=== PATIENT | female | born 2000 | race Caucasian/White ===

== ENCOUNTER 2021-06-11 11:57 | Outpatient (CLI) | payer OTHER, SELFPAY ==
[2021-06-11 12:19] LABS: Hematocrit 40.7 % (37.0-47.0); Hemoglobin 12.8 g/dL (12.0-15.0); Mean Corpuscular HGB Conc 31.4 g/dl (32-36); Mean Corpuscular Hemoglobin 26.6 pg (26-34); Mean Corpuscular Volume 84.6 fl (80-100); Mean Platelet Volume 9.2 fl (7.4-10.4); Platelet Count Result 330 k/mm3 (150-375); Red Blood Count 4.81 M/mm3 (4.2-5.4); Red Cell Distribution Width 13.7 % (11.5-14.5); White Blood Count 7.7 K/mm3 (4.5-10.0)
[2021-06-11 12:28] LABS: Alanine Aminotransferase 14 U/L (4-35); Albumin Level 4.4 g/dL (3.5-5.1); Alkaline Phosphatase 43 U/L (38-126); Anion Gap 6 mmol/L (8-16); Aspartate Amino Transferase 23 U/L (14-36); Bilirubin,Total 0.3 mg/dL (0.2-1.3); Blood Urea Nitrogen 10 mg/dL (7-17); Calcium 9.6 mg/dL (8.4-10.2); Carbon Dioxide 28 mmol/L (22-30); Chloride 104 mmol/L (98-107); Estimated Glomerular Filt Rate > 60; Glucose 85 mg/dL (65-105); Lipase 95 U/L (23-300); Potassium 4.4 mmol/L (3.4-5.0); Sodium 138 mmol/L (137-145)
--- NOTE | 2021-06-11 13:44 | ECG_ITS ---
Measurements Intervals [place] Rate: 59 P: 33 [place]: 152 QRS: 23 QRSD: 90 T: 21 QT: 431 QTc: 430 Interpretive Statements SINUS BRADYCARDIA WITH SINUS ARRHYTHMIA INCOMPLETE RIGHT BUNDLE BRANCH BLOCK BORDERLINE T WAVE ABNORMALITY- ANTERIOR LEADS BORDERLINE ECG Electronically Signed On 06-11-2021 14:22:43 CDT by Gasper Herrera D.O.
== END 2021-06-11 11:58 | disposition home or self-care (01) ==
LOC: ANHLAB 12:01
PROVIDERS: PCP Family Medicine; Visit Provider Physician Assistant
DX: R07.9 Chest pain, unspecified (principal); R10.9 Unspecified abdominal pain; I45.10 Unspecified right bundle-branch block
CPT/HCPCS: 36415; 80053; 83690; 85027; 93005

== ENCOUNTER 2021-08-24 12:19 | Emergency (ER) | payer OTHER, SELFPAY ==
--- NOTE | ~2021-08-24 | XR_ITS ---
EXAMINATION: XR chest 2V EXAM DATE: 08/24/2021 12:52 INDICATION: Posterior low right side chest pain after soccer injury. TECHNIQUE: Frontal and lateral projections of the chest obtained and reviewed. There is no prior lynn dy for comparison. FINDINGS: The lungs are clear. There are no pleural effusions. The cardiomediastinal silhouette is within normal limits. There is no pneumothorax suspected. No displaced rib fracture identified. IMPRESSION: No acute cardiopulmonary findings. Reviewed, dictated and finalized at location A.
[2021-08-24 12:33] VITALS: BP 125/70; PULSE 58; RESP 16; TEMP 36.8; O2SAT 100
--- NOTE | 2021-08-24 13:31 | ED.BACK ---
HPI - Back Pain/Injury General Chief Complaint: Back Pain/Injury Stated Complaint: Rt side pain Source: patient and RN notes reviewed Limitations: no limitations History of Present Illness HPI Narrative: The patient, previously healthy college rehabilitation services aide, presents with right rib pain. Patient states she has a weeklong history of right rib area pain where she received a sports injury/was struck there then. She felt was merely a bruise until the most recent game yesterday where she was twisting and felt some cracking of the right posterior lower ribs. No fever, cough, frequency/hematuria/urgency/dysuria, shortness of breath; she has been Covid vaccinated Related Data Home Medications Medication Instructions Recorded Confirmed norethindrone 1 mg-ethinyl 1 tablet PO DAILY 05/14/21 08/24/21 estradiol 20 mcg (24)-iron 75 mg (4) tablet Allergies Allergy/AdvReac Type Severity Reaction Status Date / Time amoxicillin Allergy Mild Hives Verified 08/24/21 12:47 Penicillins Allergy Mild Hives Verified 08/24/21 12:47 ENVIRONMENTAL ALLERGENS Allergy Mild Watery Eye Uncoded 08/24/21 12:47 Review of Systems Review of Systems: General/Constitutional: No weight loss,fever Eyes: N0: Redness,discharge Ears/Nose/Throat: No: Epistaxis,ear discharge Respiratory: Denies: Hemoptysis Gastrointestinal: No Vomiting, Bleeding-rectal Skin: No Lumps, eruption Neurologic: No Focal Weakness,Sz Hematologic: Denies: Petechiae/Purpura Psychiatric: No: Suicida ideationl All Other Systems: Reviewed and Negative [facility] Past Medical History Medical History (Updated 08/24/21 @ 13:34 by [place] Quinteros MD) Herniation of intervertebral disc between L5 and S1 Surgical History Surgical History History of tonsillectomy Hx of tympanostomy tubes Family History Family History Mother Sjogrens syndrome Grandparent Cervical cancer Grandparent Heart disease Grandparent Hypertension Social History Social History Smoking status: Never smoker Alcohol intake: current Drinks per week: 1 Substance use: never Substance use type: does not use Comments At time of signature, agree with nursing past medical, surgical, social and family history. There is no relevant family history pertinent to the presenting complaint Exam Narrative: General Appearance: Well appearing, No distress EYE: PERRLA, Conjunctiva clear Ears: External ear normal Nose: Normal nose Mouth/Throat: Normal appearing, Normal lips Neck: Supple Respiratory: Airway patent, No respiratory distress, CTA, tender right ribs T10-12 posterior axillary line Cardiovascular: RRR Abdomen: Soft, Non-tender, No massess, no CVAT, right upper quadrant tenderness Musculoskeletal: Full ROM Skin: Warm, Dry Neurological: A&O x3, CN II-X intact Psychiatric: Normal mood, Normal affect Course Vital Signs Vital signs: Vital Signs Temperature 98.3 F 08/24/21 12:33 Pulse Rate 58 L 08/24/21 12:33 Respiratory Rate 16 08/24/21 12:33 Blood Pressure 125/70 08/24/21 12:33 Pulse Oximetry 100 08/24/21 12:33 Temperature 98.3 F 08/24/21 12:33 Pulse Rate 58 L 08/24/21 12:33 Respiratory Rate 16 08/24/21 12:33 Blood Pressure 125/70 08/24/21 12:33 Pulse Oximetry 100 08/24/21 12:33 Discharge Plan Discharge Clinical Impression: Rib injury Patient Disposition: Home, Self-Care Condition: Stable Instructions: Rib Contusion (ED) Prescriptions: New tramadol 50 mg tablet 50 - 75 mg PO Q6H PRN (Reason: pain) Qty: 30 RF: 0 No Action norethindrone-e.estradiol-iron [] 1 mg-20 mcg (24)/75 mg (4) tablet 1 tablet PO DAILY RF: 0 Follow-up/Referrals: Emily Juarez MD [Primary Care Provider] -
== END 2021-08-24 13:35 | disposition home or self-care (01) ==
PROVIDERS: Emergency Provider Emergency Medicine; PCP Family Medicine
DX: S29.9XXA Unspecified injury of thorax, initial encounter (principal); W21.9XXA Striking against or struck by unspecified sports equipment, initial encounter
CPT/HCPCS: 71046; 99213; G0463

== ENCOUNTER 2022-03-21 10:35 | Outpatient (CLI) | payer OTHER, SELFPAY ==
--- NOTE | ~2022-03-21 | XR_ITS ---
EXAMINATION: XR pelvis min 3V DATE: 03/21/2022 11:05 INDICATION: Right hip pain. TECHNIQUE: 3 views of the pelvis were obtained. COMPARISON: None. FINDINGS: There is old healed fracture of right acetabulum with fixation of right ilium with 4 screws . No acute fracture. There is mild right hip osteoarthritis. IMPRESSION: 1. Old healed fracture of right acetabulum with interval fixation. 2. Mild right hip osteoarthritis. Reviewed, dictated and finalized at location B.
== END 2022-03-21 10:36 | disposition home or self-care (01) ==
PROVIDERS: PCP Family Medicine; Visit Provider Orthopaedic Surgery
DX: M16.11 Unilateral primary osteoarthritis, right hip (principal); Z47.89 Encounter for other orthopedic aftercare
CPT/HCPCS: 72190

== ENCOUNTER 2024-06-29 16:30 | Outpatient (CLI) | payer OTHER, SELFPAY ==
--- NOTE | 2024-06-29 16:40 | ECG_ITS ---
Test Date: 2024-06-29 16:51:50 Measurements Intervals [place] Rate: 85 P: 51 [place]: 162 QRS: 18 QRSD: 90 T: 36 QT: 354 QTc: 423 Interpretive Statements SINUS RHYTHM WITH SINUS ARRHYTHMIA INCOMPLETE RIGHT BUNDLE BRANCH BLOCK BORDERLINE ECG No previous ECG available for comparison Electronically Signed On 06-29-2024 20:27:46 CDT by Gasper Herrera D.O.
[2024-06-29 17:10] LABS: Hematocrit 39.5 % (37.0-47.0); Hemoglobin 12.8 g/dL (12.0-15.0); Mean Corpuscular HGB Conc 32.4 g/dl (32-36); Mean Corpuscular Hemoglobin 27.8 pg (26-34); Mean Corpuscular Volume 85.7 fl (80-100); Mean Platelet Volume 8.9 fl (7.4-10.4); Platelet Count Result 250 k/mm3 (150-375); Red Blood Count 4.61 M/mm3 (4.2-5.4); White Blood Count 7.6 K/mm3 (4.5-10.0)
[2024-06-29 17:22] LABS: Alanine Aminotransferase 14 U/L (6-35); Albumin Level 4.5 g/dL (3.5-5.1); Alkaline Phosphatase 39 U/L (38-126); Anion Gap 10 mmol/L (4-12); Aspartate Amino Transferase 23 U/L (14-36); Bilirubin,Total 0.2 mg/dL (0.2-1.3); Blood Urea Nitrogen 8 mg/dL (7-17); Calcium 9.1 mg/dL (8.4-10.2); Carbon Dioxide 28 mmol/L (22-30); Chloride 99 mmol/L (98-107); Estimated Glomerular Filt Rate > 60; Glucose 88 mg/dL (65-110); Sodium 137 mmol/L (137-145)
[2024-06-29 17:52] LABS: Thyroid Stimulating Hormone 0.815 uIU/mL (0.465-4.680)
[2024-06-29 18:08] LABS: Band Neutrophils Percent 1 % (0-6); Basophils Absolute Manual 0.07 K/mm3 (0.0-0.1); Basophils Percent Manual 1 % (0-1); Eosinophils Absolute Manual 0.22 K/mm3 (0.02-0.50); Eosinophils Percent Manual 3 % (0-4); Lymphocytes Absolute Manual 2.66 K/mm3 (1.1-4.5); Monocytes Absolute Manual 1.06 K/mm3 (0.1-0.90); Monocytes Percent Manual 14 % (3-9); Neutrophils Absolute Manual 3.57 K/mm3 (1.7-7.2); Neutrophils Percent Manual 46 % (46-73); Platelet Estimate Adequate (Adequate); Schistocytes None Seen; Total Cells Counted 100
[2024-06-29 18:15] LABS: Free T4 Free Thyroxine 1.07 ng/mL (0.78-2.19)
[2024-07-01 08:54] LABS: Anti Nuclear Antibody Pattern Nuclear, Speckled
== END 2024-06-29 16:31 | disposition home or self-care (01) ==
PROVIDERS: PCP Family Medicine; Visit Provider Student in an Organized Health Care Education/Training Program
DX: Z00.00 Encounter for general adult medical examination without abnormal findings (principal); R00.2 Palpitations; M79.10 Myalgia, unspecified site; R53.1 Weakness; R53.83 Other fatigue; I45.10 Unspecified right bundle-branch block
CPT/HCPCS: 36415; 80053; 84439; 84443; 85025; 86038; 86039; 93005